=== PATIENT | male | born 1940 | race Caucasian/White ===

== ENCOUNTER 2023-07-20 11:44 | Inpatient (IN) | payer MEDICARE, OTHER ==
[2023-07-20] MEDS ORDERED: Acetaminophen 500 MG TAB PO PRN (14:01)
[2023-07-20] MEDS ORDERED: Ipratropium Bromide 0.03% Nasal Inhaler 30 ml Bottle EA NARE PRN (14:07)
[2023-07-20] MEDS ORDERED: Guaifenesin DM 100-10/5 ML UDCUP PO PRN (14:07)
[2023-07-20] MEDS: Pregabalin 75 MG CAP PO SCH ×2 (14:51→21:22)
[2023-07-20 15:17] LABS: SARS-CoV-2 NAA Rapid Test Not Detected (NotDetected)
[2023-07-20] MEDS ORDERED: Proctozone-HC 30 GM TUBE TOP PRN (16:56)
[2023-07-20] MEDS: Diclofenac 1% 100 GM Topical GEL TP SCH ×2 (17:12→21:26)
[2023-07-20] MEDS: metFORMIN 500 MG TAB PO SCH (17:13)
[2023-07-20] MEDS ORDERED: Lantiseptic Ointment 130 GM JAR TOP PRN (19:11)
[2023-07-20] MEDS: levETIRAcetam 500 MG TAB PO SCH (21:24)
[2023-07-20] MEDS: Lantiseptic Ointment 130 GM JAR TOP SCH (21:25)
[2023-07-20] MEDS: Apixaban 5 MG TAB PO SCH (21:25)
[2023-07-20] MEDS: Lisinopril 5 MG TAB PO SCH (21:26)
[2023-07-20] MEDS: HYDROcodone/Acetaminophen 7.5/325 mg Tablet PO PRN (21:27)
[2023-07-21 03:27] LABS: Bilirubin Negative (Negative); Blood, Urine Moderate (Negative); Clarity Clear (Clear); Glucose, Urine (Dipstick) Negative (Negative); Ketone, Urine Trace mg/dL (Negative); Leukocyte Negative (Negative); Nitrite Negative (Negative); Protein, Urine (Dipstick) Negative (Neg-Trace); Specific Gravity, Urine 1.015 (1.005-1.030); pH, Urine 5.5 (5.0-9.0)
[2023-07-21 03:34] LABS: Bacteria/HPF Rare-Few HPF (None Seen); CAUTI Indications for Culture Urological Procedure; RBC/HPF 21-50 HPF (0-3); Squamous Epithelial 0-3 HPF (0-3)
[2023-07-21 03:35] LABS: Urine Culture Reflex Yes Yes
[2023-07-21] MEDS: Cyanocobalamin (Vitamin B-12) 1,000 MCG TAB PO SCH (08:33)
[2023-07-21] MEDS: Aspirin 81 mg Enteric Coated Tablet PO SCH (08:33)
[2023-07-21] MEDS: Pregabalin 75 MG CAP PO SCH ×3 (08:33→21:32)
[2023-07-21] MEDS: Loratadine 10 MG TAB PO SCH (08:33)
[2023-07-21] MEDS: Diclofenac 1% 100 GM Topical GEL TP SCH ×4 (08:33→21:39)
[2023-07-21] MEDS: Apixaban 5 MG TAB PO SCH ×2 (08:33→21:32)
[2023-07-21] MEDS: Isosorbide Mononitrate 30 MG ER.TAB PO SCH (08:34)
[2023-07-21] MEDS: metFORMIN 500 MG TAB PO SCH ×2 (08:34→17:05)
[2023-07-21] MEDS: Ascorbic Acid 500 mg Chewable Tablet PO SCH (08:35)
[2023-07-21] MEDS: levETIRAcetam 500 MG TAB PO SCH ×2 (08:35→21:31)
[2023-07-21] MEDS: Atorvastatin Calcium 40 MG TAB PO SCH (08:35)
[2023-07-21] MEDS: DULoxetine 30 MG CAP PO SCH (08:36)
[2023-07-21] MEDS: Ferrous Sulfate 325 MG TAB PO SCH (08:36)
[2023-07-21] MEDS: Lantiseptic Ointment 130 GM JAR TOP SCH ×2 (08:38→21:37)
[2023-07-21] MEDS: Lisinopril 5 MG TAB PO SCH (21:32)
[2023-07-22 07:29] LABS: ALT (SGPT) 17 U/L (8-55); AST (SGOT) 18 U/L (5-34); Albumin 3.1 g/dL (3.4-4.8); Alkaline Phosphatase 60 U/L (40-110); Anion Gap 12 mmol/L (10-20); BUN (Urea Nitrogen) 14 mg/dL (8.4-25.7); Bilirubin, Total 0.6 mg/dL (0.2-1.2); Calc. Creatinine Clearance 81 mL/min (70-130); Calcium 9.1 mg/dL (7.8-10.44); Carbon Dioxide 30 mmol/L (23-31); Chloride 100 mmol/L (98-107); Estimated GFR 91; Glucose 109 mg/dL (83-110); Protein, Total 6.1 g/dL (5.8-8.1); Sodium 138 mmol/L (136-145)
[2023-07-22 07:35] LABS: Hematocrit 43.3 % (42.0-52.0); Hemoglobin 13.7 g/dL (14.0-18.0); Mean Corpuscular HGB CONC 31.7 g/dL (32.0-36.0); Mean Corpuscular Hemoglobin 29.5 pg (27.0-31.0); Mean Corpuscular Volume 92.9 fl (78.0-98.0); Mean Platelet Volume 13.1 fL (7.4-10.4); Platelet Count 147 10x3/uL (130-400); RBC Distribution Width 14.2 % (11.5-14.5); Red Blood Cell (RBC) Count 4.67 mill/uL (4.70-6.10); White Blood Cell (WBC) Count 9.5 10x3/uL (4.8-10.8)
[2023-07-22] MEDS: metFORMIN 500 MG TAB PO SCH ×2 (08:00→17:00)
[2023-07-22] MEDS: DULoxetine 30 MG CAP PO SCH (08:00)
[2023-07-22] MEDS: Loratadine 10 MG TAB PO SCH (08:00)
[2023-07-22] MEDS: Ascorbic Acid 500 mg Chewable Tablet PO SCH (08:00)
[2023-07-22] MEDS: Ferrous Sulfate 325 MG TAB PO SCH (08:00)
[2023-07-22] MEDS: Isosorbide Mononitrate 30 MG ER.TAB PO SCH (08:00)
[2023-07-22] MEDS: Atorvastatin Calcium 40 MG TAB PO SCH (08:01)
[2023-07-22] MEDS: Cyanocobalamin (Vitamin B-12) 1,000 MCG TAB PO SCH (08:01)
[2023-07-22] MEDS: Aspirin 81 mg Enteric Coated Tablet PO SCH (08:01)
[2023-07-22] MEDS: levETIRAcetam 500 MG TAB PO SCH ×2 (08:01→20:52)
[2023-07-22] MEDS: Pregabalin 75 MG CAP PO SCH ×3 (08:01→20:59)
[2023-07-22] MEDS: Lantiseptic Ointment 130 GM JAR TOP SCH ×2 (08:01→21:00)
[2023-07-22] MEDS: Apixaban 5 MG TAB PO SCH ×2 (08:01→20:56)
[2023-07-22] MEDS: Diclofenac 1% 100 GM Topical GEL TP SCH ×4 (08:03→20:52)
[2023-07-22] MEDS: Lisinopril 5 MG TAB PO SCH (20:56)
[2023-07-23] MEDS: levETIRAcetam 500 MG TAB PO SCH ×2 (08:43→21:14)
[2023-07-23] MEDS: Apixaban 5 MG TAB PO SCH ×2 (08:43→21:14)
[2023-07-23] MEDS: Diclofenac 1% 100 GM Topical GEL TP SCH ×4 (08:43→21:15)
[2023-07-23] MEDS: Aspirin 81 mg Enteric Coated Tablet PO SCH (08:43)
[2023-07-23] MEDS: Pregabalin 75 MG CAP PO SCH ×3 (08:43→21:13)
[2023-07-23] MEDS: Atorvastatin Calcium 40 MG TAB PO SCH (08:44)
[2023-07-23] MEDS: metFORMIN 500 MG TAB PO SCH ×2 (08:44→17:19)
[2023-07-23] MEDS: Loratadine 10 MG TAB PO SCH (08:45)
[2023-07-23] MEDS: Isosorbide Mononitrate 30 MG ER.TAB PO SCH (08:45)
[2023-07-23] MEDS: Cyanocobalamin (Vitamin B-12) 1,000 MCG TAB PO SCH (08:45)
[2023-07-23] MEDS: DULoxetine 30 MG CAP PO SCH (08:45)
[2023-07-23] MEDS: Ascorbic Acid 500 mg Chewable Tablet PO SCH (08:45)
[2023-07-23] MEDS: Ferrous Sulfate 325 MG TAB PO SCH (08:45)
[2023-07-23] MEDS: Lantiseptic Ointment 130 GM JAR TOP SCH ×2 (08:46→21:15)
[2023-07-23] MEDS ORDERED: Fosfomycin 3 GM/Packet PO SCH (12:00)
[2023-07-23] MEDS: Lisinopril 5 MG TAB PO SCH (21:14)
[2023-07-24] MEDS: levETIRAcetam 500 MG TAB PO SCH ×2 (08:11→20:52)
[2023-07-24] MEDS: Diclofenac 1% 100 GM Topical GEL TP SCH ×4 (08:11→21:11)
[2023-07-24] MEDS: Lantiseptic Ointment 130 GM JAR TOP SCH ×2 (08:12→23:30)
[2023-07-24] MEDS: Pregabalin 75 MG CAP PO SCH ×3 (08:12→20:54)
[2023-07-24] MEDS: Cyanocobalamin (Vitamin B-12) 1,000 MCG TAB PO SCH (08:13)
[2023-07-24] MEDS: DULoxetine 30 MG CAP PO SCH (08:13)
[2023-07-24] MEDS: Aspirin 81 mg Enteric Coated Tablet PO SCH (08:13)
[2023-07-24] MEDS: Isosorbide Mononitrate 30 MG ER.TAB PO SCH (08:13)
[2023-07-24] MEDS: metFORMIN 500 MG TAB PO SCH ×2 (08:13→16:59)
[2023-07-24] MEDS: Ferrous Sulfate 325 MG TAB PO SCH (08:13)
[2023-07-24] MEDS: Ascorbic Acid 500 mg Chewable Tablet PO SCH (08:15)
[2023-07-24] MEDS: Loratadine 10 MG TAB PO SCH (08:15)
[2023-07-24] MEDS: Apixaban 5 MG TAB PO SCH ×2 (08:16→20:53)
[2023-07-24] MEDS: Atorvastatin Calcium 40 MG TAB PO SCH (08:16)
[2023-07-24] MEDS: Lisinopril 5 MG TAB PO SCH (20:54)
[2023-07-25] MEDS: Isosorbide Mononitrate 30 MG ER.TAB PO SCH (08:52)
[2023-07-25] MEDS: levETIRAcetam 500 MG TAB PO SCH ×2 (08:52→20:20)
[2023-07-25] MEDS: DULoxetine 30 MG CAP PO SCH (08:53)
[2023-07-25] MEDS: Atorvastatin Calcium 40 MG TAB PO SCH (08:53)
[2023-07-25] MEDS: Aspirin 81 mg Enteric Coated Tablet PO SCH (08:53)
[2023-07-25] MEDS: Ferrous Sulfate 325 MG TAB PO SCH (08:53)
[2023-07-25] MEDS: Loratadine 10 MG TAB PO SCH (08:53)
[2023-07-25] MEDS: metFORMIN 500 MG TAB PO SCH ×2 (08:53→17:38)
[2023-07-25] MEDS: Ascorbic Acid 500 mg Chewable Tablet PO SCH (08:53)
[2023-07-25] MEDS: Pregabalin 75 MG CAP PO SCH ×3 (08:53→20:20)
[2023-07-25] MEDS: Apixaban 5 MG TAB PO SCH ×2 (08:54→20:21)
[2023-07-25] MEDS: Cyanocobalamin (Vitamin B-12) 1,000 MCG TAB PO SCH (08:54)
[2023-07-25] MEDS: Diclofenac 1% 100 GM Topical GEL TP SCH ×4 (08:54→20:20)
[2023-07-25] MEDS: Lantiseptic Ointment 130 GM JAR TOP SCH ×2 (08:55→20:22)
[2023-07-25] MEDS: Lisinopril 5 MG TAB PO SCH (20:20)
[2023-07-26] MEDS: Isosorbide Mononitrate 30 MG ER.TAB PO SCH (08:31)
[2023-07-26] MEDS: levETIRAcetam 500 MG TAB PO SCH ×2 (08:31→20:21)
[2023-07-26] MEDS: Aspirin 81 mg Enteric Coated Tablet PO SCH (08:32)
[2023-07-26] MEDS: Loratadine 10 MG TAB PO SCH (08:32)
[2023-07-26] MEDS: Cyanocobalamin (Vitamin B-12) 1,000 MCG TAB PO SCH (08:32)
[2023-07-26] MEDS: DULoxetine 30 MG CAP PO SCH (08:32)
[2023-07-26] MEDS: Apixaban 5 MG TAB PO SCH ×2 (08:32→20:21)
[2023-07-26] MEDS: metFORMIN 500 MG TAB PO SCH ×2 (08:32→17:46)
[2023-07-26] MEDS: Atorvastatin Calcium 40 MG TAB PO SCH (08:32)
[2023-07-26] MEDS: Ferrous Sulfate 325 MG TAB PO SCH (08:32)
[2023-07-26] MEDS: Pregabalin 75 MG CAP PO SCH ×3 (08:32→20:21)
[2023-07-26] MEDS: Diclofenac 1% 100 GM Topical GEL TP SCH ×4 (08:34→20:21)
[2023-07-26] MEDS: Ascorbic Acid 500 mg Chewable Tablet PO SCH (08:34)
[2023-07-26] MEDS: Lantiseptic Ointment 130 GM JAR TOP SCH ×2 (08:35→20:22)
[2023-07-26] MEDS: Lisinopril 5 MG TAB PO SCH (20:20)
[2023-07-27] MEDS: Apixaban 5 MG TAB PO SCH ×2 (08:33→21:41)
[2023-07-27] MEDS: Pregabalin 75 MG CAP PO SCH ×3 (08:33→21:27)
[2023-07-27] MEDS: Isosorbide Mononitrate 30 MG ER.TAB PO SCH (08:34)
[2023-07-27] MEDS: levETIRAcetam 500 MG TAB PO SCH ×2 (08:34→21:27)
[2023-07-27] MEDS: Loratadine 10 MG TAB PO SCH (08:35)
[2023-07-27] MEDS: Aspirin 81 mg Enteric Coated Tablet PO SCH (08:35)
[2023-07-27] MEDS: metFORMIN 500 MG TAB PO SCH ×2 (08:35→17:51)
[2023-07-27] MEDS: Ascorbic Acid 500 mg Chewable Tablet PO SCH (08:35)
[2023-07-27] MEDS: DULoxetine 30 MG CAP PO SCH (08:36)
[2023-07-27] MEDS: Ferrous Sulfate 325 MG TAB PO SCH (08:36)
[2023-07-27] MEDS: Cyanocobalamin (Vitamin B-12) 1,000 MCG TAB PO SCH (08:36)
[2023-07-27] MEDS: Diclofenac 1% 100 GM Topical GEL TP SCH ×4 (08:36→21:40)
[2023-07-27] MEDS: Atorvastatin Calcium 40 MG TAB PO SCH (08:36)
[2023-07-27] MEDS: Lantiseptic Ointment 130 GM JAR TOP SCH ×2 (08:37→21:33)
[2023-07-27] MEDS: Lisinopril 5 MG TAB PO SCH (21:27)
[2023-07-28] MEDS: Diclofenac 1% 100 GM Topical GEL TP SCH ×4 (08:48→20:19)
[2023-07-28] MEDS: Pregabalin 75 MG CAP PO SCH ×3 (08:48→20:20)
[2023-07-28] MEDS: Ferrous Sulfate 325 MG TAB PO SCH (08:48)
[2023-07-28] MEDS: metFORMIN 500 MG TAB PO SCH ×2 (08:48→17:23)
[2023-07-28] MEDS: Apixaban 5 MG TAB PO SCH ×2 (08:49→20:20)
[2023-07-28] MEDS: Isosorbide Mononitrate 30 MG ER.TAB PO SCH (08:49)
[2023-07-28] MEDS: levETIRAcetam 500 MG TAB PO SCH ×2 (08:49→20:20)
[2023-07-28] MEDS: Aspirin 81 mg Enteric Coated Tablet PO SCH (08:49)
[2023-07-28] MEDS: DULoxetine 30 MG CAP PO SCH (08:50)
[2023-07-28] MEDS: Atorvastatin Calcium 40 MG TAB PO SCH (08:50)
[2023-07-28] MEDS: Ascorbic Acid 500 mg Chewable Tablet PO SCH (08:50)
[2023-07-28] MEDS: Loratadine 10 MG TAB PO SCH (08:50)
[2023-07-28] MEDS: Cyanocobalamin (Vitamin B-12) 1,000 MCG TAB PO SCH (08:50)
[2023-07-28] MEDS: Lantiseptic Ointment 130 GM JAR TOP SCH ×2 (08:51→20:21)
[2023-07-28] MEDS: HYDROcodone/Acetaminophen 7.5/325 mg Tablet PO PRN (18:28)
[2023-07-28] MEDS: Lisinopril 5 MG TAB PO SCH (20:20)
[2023-07-29 05:14] LABS: Hematocrit 42.1 % (42.0-52.0); Hemoglobin 13.6 g/dL (14.0-18.0); Platelet Count 147 10x3/uL (130-400)
[2023-07-29] MEDS: Ondansetron ODT 4 MG TAB PO PRN ×2 (08:48→21:05)
[2023-07-29] MEDS: Ascorbic Acid 500 mg Chewable Tablet PO SCH (12:35)
[2023-07-29] MEDS: Aspirin 81 mg Enteric Coated Tablet PO SCH (12:35)
[2023-07-29] MEDS: Atorvastatin Calcium 40 MG TAB PO SCH ×2 (12:35→21:08)
[2023-07-29] MEDS: Ferrous Sulfate 325 MG TAB PO SCH (12:35)
[2023-07-29] MEDS: Cyanocobalamin (Vitamin B-12) 1,000 MCG TAB PO SCH (12:35)
[2023-07-29] MEDS: Apixaban 5 MG TAB PO SCH ×2 (12:35→21:06)
[2023-07-29] MEDS: metFORMIN 500 MG TAB PO SCH ×2 (12:35→18:39)
[2023-07-29] MEDS: levETIRAcetam 500 MG TAB PO SCH ×2 (12:36→21:05)
[2023-07-29] MEDS: DULoxetine 30 MG CAP PO SCH (12:36)
[2023-07-29] MEDS: Lantiseptic Ointment 130 GM JAR TOP SCH ×2 (12:36→21:10)
[2023-07-29] MEDS: Diclofenac 1% 100 GM Topical GEL TP SCH ×4 (12:36→21:08)
[2023-07-29] MEDS: Isosorbide Mononitrate 30 MG ER.TAB PO SCH (12:36)
[2023-07-29] MEDS: Pregabalin 75 MG CAP PO SCH ×3 (12:36→21:07)
[2023-07-29] MEDS: Loratadine 10 MG TAB PO SCH (12:36)
[2023-07-29] MEDS ORDERED: Acetaminophen 500 MG TAB PO PRN (13:51)
[2023-07-29] MEDS ORDERED: HYDROcodone/Acetaminophen 7.5/325 mg Tablet PO PRN (13:56)
[2023-07-29] MEDS: Lisinopril 5 MG TAB PO SCH (21:07)
[2023-07-30] MEDS: Pregabalin 75 MG CAP PO SCH ×3 (09:11→21:11)
[2023-07-30] MEDS: metFORMIN 500 MG TAB PO SCH ×2 (09:11→17:02)
[2023-07-30] MEDS: Ascorbic Acid 500 mg Chewable Tablet PO SCH (09:12)
[2023-07-30] MEDS: levETIRAcetam 500 MG TAB PO SCH ×2 (09:12→21:10)
[2023-07-30] MEDS: Aspirin 81 mg Enteric Coated Tablet PO SCH (09:12)
[2023-07-30] MEDS: Isosorbide Mononitrate 30 MG ER.TAB PO SCH (09:12)
[2023-07-30] MEDS: Apixaban 5 MG TAB PO SCH ×2 (09:12→21:10)
[2023-07-30] MEDS: Ferrous Sulfate 325 MG TAB PO SCH (09:12)
[2023-07-30] MEDS: Cyanocobalamin (Vitamin B-12) 1,000 MCG TAB PO SCH (09:12)
[2023-07-30] MEDS: Loratadine 10 MG TAB PO SCH (09:12)
[2023-07-30] MEDS: DULoxetine 30 MG CAP PO SCH (09:13)
[2023-07-30] MEDS: Diclofenac 1% 100 GM Topical GEL TP SCH ×4 (09:13→21:12)
[2023-07-30] MEDS: Lantiseptic Ointment 130 GM JAR TOP SCH ×2 (09:14→21:13)
[2023-07-30] MEDS: HYDROcodone/Acetaminophen 5/325 mg Tablet PO PRN (13:22)
[2023-07-30] MEDS: Atorvastatin Calcium 40 MG TAB PO SCH (21:10)
[2023-07-30] MEDS: Lisinopril 5 MG TAB PO SCH (21:11)
[2023-07-31] MEDS: Ferrous Sulfate 325 MG TAB PO SCH (09:01)
[2023-07-31] MEDS: Aspirin 81 mg Enteric Coated Tablet PO SCH (09:02)
[2023-07-31] MEDS: DULoxetine 30 MG CAP PO SCH (09:02)
[2023-07-31] MEDS: Ascorbic Acid 500 mg Chewable Tablet PO SCH (09:02)
[2023-07-31] MEDS: Loratadine 10 MG TAB PO SCH (09:02)
[2023-07-31] MEDS: Pregabalin 75 MG CAP PO SCH ×3 (09:02→20:25)
[2023-07-31] MEDS: levETIRAcetam 500 MG TAB PO SCH ×2 (09:02→20:32)
[2023-07-31] MEDS: Cyanocobalamin (Vitamin B-12) 1,000 MCG TAB PO SCH (09:02)
[2023-07-31] MEDS: metFORMIN 500 MG TAB PO SCH ×2 (09:02→16:58)
[2023-07-31] MEDS: Isosorbide Mononitrate 30 MG ER.TAB PO SCH (09:02)
[2023-07-31] MEDS: Apixaban 5 MG TAB PO SCH ×2 (09:02→20:25)
[2023-07-31] MEDS: Lantiseptic Ointment 130 GM JAR TOP SCH ×2 (09:03→20:33)
[2023-07-31] MEDS: Diclofenac 1% 100 GM Topical GEL TP SCH ×4 (09:03→20:32)
[2023-07-31 11:49] LABS: Bilirubin Negative (Negative); Blood, Urine Moderate (Negative); Clarity Clear (Clear); Glucose, Urine (Dipstick) Negative (Negative); Ketone, Urine Negative (Negative); Leukocyte Negative (Negative); Nitrite Negative (Negative); Protein, Urine (Dipstick) Trace mg/dL (Neg-Trace); Urobilinogen 0.2 mg/dL (Less than 2)
[2023-07-31 11:59] LABS: Bacteria/HPF Rare-Few HPF (None Seen); CAUTI Indications for Culture Acute Hematuria; WBC/HPF 0-3 HPF (0-3)
[2023-07-31 12:00] LABS: Urine Culture Reflex No No
[2023-07-31] MEDS: Lisinopril 5 MG TAB PO SCH (20:25)
[2023-07-31] MEDS: Atorvastatin Calcium 40 MG TAB PO SCH (20:25)
[2023-08-01] MEDS: levETIRAcetam 500 MG TAB PO SCH ×2 (09:31→21:12)
[2023-08-01] MEDS: DULoxetine 30 MG CAP PO SCH (09:31)
[2023-08-01] MEDS: Isosorbide Mononitrate 30 MG ER.TAB PO SCH (09:32)
[2023-08-01] MEDS: Loratadine 10 MG TAB PO SCH (09:32)
[2023-08-01] MEDS: Ferrous Sulfate 325 MG TAB PO SCH (09:32)
[2023-08-01] MEDS: Cyanocobalamin (Vitamin B-12) 1,000 MCG TAB PO SCH (09:32)
[2023-08-01] MEDS: Aspirin 81 mg Enteric Coated Tablet PO SCH (09:32)
[2023-08-01] MEDS: Ascorbic Acid 500 mg Chewable Tablet PO SCH (09:32)
[2023-08-01] MEDS: Apixaban 5 MG TAB PO SCH ×2 (09:32→21:13)
[2023-08-01] MEDS: metFORMIN 500 MG TAB PO SCH ×2 (09:32→17:21)
[2023-08-01] MEDS: Lantiseptic Ointment 130 GM JAR TOP SCH ×2 (09:32→21:14)
[2023-08-01] MEDS: Diclofenac 1% 100 GM Topical GEL TP SCH ×4 (09:34→21:14)
[2023-08-01] MEDS: Pregabalin 75 MG CAP PO SCH ×3 (09:37→21:12)
[2023-08-01] MEDS: Atorvastatin Calcium 40 MG TAB PO SCH (21:12)
[2023-08-01] MEDS: Lisinopril 5 MG TAB PO SCH (21:13)
[2023-08-02] MEDS: DULoxetine 30 MG CAP PO SCH (08:40)
[2023-08-02] MEDS: Loratadine 10 MG TAB PO SCH (08:40)
[2023-08-02] MEDS: Isosorbide Mononitrate 30 MG ER.TAB PO SCH (08:40)
[2023-08-02] MEDS: levETIRAcetam 500 MG TAB PO SCH ×2 (08:40→20:08)
[2023-08-02] MEDS: Ferrous Sulfate 325 MG TAB PO SCH (08:40)
[2023-08-02] MEDS: Apixaban 5 MG TAB PO SCH ×2 (08:41→20:08)
[2023-08-02] MEDS: Diclofenac 1% 100 GM Topical GEL TP SCH ×4 (08:41→20:08)
[2023-08-02] MEDS: Aspirin 81 mg Enteric Coated Tablet PO SCH (08:41)
[2023-08-02] MEDS: metFORMIN 500 MG TAB PO SCH ×2 (08:41→16:05)
[2023-08-02] MEDS: Ascorbic Acid 500 mg Chewable Tablet PO SCH (08:41)
[2023-08-02] MEDS: Cyanocobalamin (Vitamin B-12) 1,000 MCG TAB PO SCH (08:41)
[2023-08-02] MEDS: Lantiseptic Ointment 130 GM JAR TOP SCH ×2 (08:41→20:13)
[2023-08-02] MEDS: Pregabalin 75 MG CAP PO SCH ×3 (08:44→20:09)
[2023-08-02] MEDS: Lisinopril 5 MG TAB PO SCH (20:08)
[2023-08-02] MEDS: Atorvastatin Calcium 40 MG TAB PO SCH (20:08)
[2023-08-03] MEDS: Loratadine 10 MG TAB PO SCH ×2 (08:40→13:41)
[2023-08-03] MEDS: Isosorbide Mononitrate 30 MG ER.TAB PO SCH ×2 (08:40→13:42)
[2023-08-03] MEDS: levETIRAcetam 500 MG TAB PO SCH ×3 (08:41→20:32)
[2023-08-03] MEDS: Pregabalin 75 MG CAP PO SCH ×4 (08:41→20:32)
[2023-08-03] MEDS: Ascorbic Acid 500 mg Chewable Tablet PO SCH ×2 (08:41→13:42)
[2023-08-03] MEDS: Cyanocobalamin (Vitamin B-12) 1,000 MCG TAB PO SCH ×2 (08:42→13:42)
[2023-08-03] MEDS: metFORMIN 500 MG TAB PO SCH ×3 (08:42→16:48)
[2023-08-03] MEDS: Diclofenac 1% 100 GM Topical GEL TP SCH ×4 (08:42→20:32)
[2023-08-03] MEDS: Ferrous Sulfate 325 MG TAB PO SCH ×2 (08:42→13:42)
[2023-08-03] MEDS: Apixaban 5 MG TAB PO SCH ×3 (08:42→20:32)
[2023-08-03] MEDS: Aspirin 81 mg Enteric Coated Tablet PO SCH ×2 (08:42→13:42)
[2023-08-03] MEDS: DULoxetine 30 MG CAP PO SCH ×2 (08:43→13:42)
[2023-08-03] MEDS: Lantiseptic Ointment 130 GM JAR TOP SCH ×2 (08:43→20:33)
[2023-08-03] MEDS: Ondansetron ODT 4 MG TAB PO PRN (09:21)
[2023-08-03] MEDS ORDERED: Ipratropium/Albuterol 3 ML NEB NEB PRN (15:13)
[2023-08-03] MEDS: HYDROcodone/Acetaminophen 5/325 mg Tablet PO PRN ×2 (15:39→23:39)
[2023-08-03] MEDS: Atorvastatin Calcium 40 MG TAB PO SCH (20:32)
[2023-08-03] MEDS: guaiFENesin ER 600 MG TAB PO SCH (20:32)
[2023-08-03] MEDS: Lisinopril 5 MG TAB PO SCH (20:32)
[2023-08-04] MEDS: HYDROcodone/Acetaminophen 5/325 mg Tablet PO PRN (08:58)
[2023-08-04] MEDS: Pregabalin 75 MG CAP PO SCH ×3 (08:58→20:00)
[2023-08-04] MEDS: Aspirin 81 mg Enteric Coated Tablet PO SCH (09:00)
[2023-08-04] MEDS: Isosorbide Mononitrate 30 MG ER.TAB PO SCH (09:00)
[2023-08-04] MEDS: levETIRAcetam 500 MG TAB PO SCH ×2 (09:00→20:00)
[2023-08-04] MEDS: metFORMIN 500 MG TAB PO SCH ×2 (09:00→17:05)
[2023-08-04] MEDS: Apixaban 5 MG TAB PO SCH ×2 (09:00→20:01)
[2023-08-04] MEDS: guaiFENesin ER 600 MG TAB PO SCH ×2 (09:00→20:02)
[2023-08-04] MEDS: DULoxetine 30 MG CAP PO SCH (09:00)
[2023-08-04] MEDS: Lantiseptic Ointment 130 GM JAR TOP SCH ×2 (09:01→20:06)
[2023-08-04] MEDS: Ascorbic Acid 500 mg Chewable Tablet PO SCH (09:02)
[2023-08-04] MEDS: Ferrous Sulfate 325 MG TAB PO SCH (09:02)
[2023-08-04] MEDS: Cyanocobalamin (Vitamin B-12) 1,000 MCG TAB PO SCH (09:02)
[2023-08-04] MEDS: Diclofenac 1% 100 GM Topical GEL TP SCH ×4 (09:23→20:02)
[2023-08-04] MEDS ORDERED: HYDROcodone/Acetaminophen 10/325 mg Tablet PO PRN (10:11)
[2023-08-04] MEDS ORDERED: HYDROcodone/Acetaminophen 5/325 mg Tablet PO PRN (10:15)
[2023-08-04] MEDS ORDERED: HYDROcodone/Acetaminophen 10/325 mg Tablet PO SCH (10:15)
[2023-08-04] MEDS ORDERED: Mag-Al Plus 1200 MG/1200 MG/120 MG/30 ML UDCUP PO PRN (12:39)
[2023-08-04] MEDS: Cyclobenzaprine 10 MG TAB PO PRN (19:51)
[2023-08-04] MEDS: Atorvastatin Calcium 40 MG TAB PO SCH (20:02)
[2023-08-04] MEDS: Lisinopril 5 MG TAB PO SCH (20:09)
[2023-08-05] MEDS: Ferrous Sulfate 325 MG TAB PO SCH (08:57)
[2023-08-05] MEDS: metFORMIN 500 MG TAB PO SCH ×2 (08:57→18:02)
[2023-08-05] MEDS: Pregabalin 75 MG CAP PO SCH ×3 (08:57→20:05)
[2023-08-05] MEDS: Loratadine 10 MG TAB PO SCH (08:58)
[2023-08-05] MEDS: DULoxetine 30 MG CAP PO SCH (08:58)
[2023-08-05] MEDS: Apixaban 5 MG TAB PO SCH ×2 (08:58→20:08)
[2023-08-05] MEDS: Cyanocobalamin (Vitamin B-12) 1,000 MCG TAB PO SCH (08:58)
[2023-08-05] MEDS: Isosorbide Mononitrate 30 MG ER.TAB PO SCH (08:58)
[2023-08-05] MEDS: guaiFENesin ER 600 MG TAB PO SCH ×2 (08:58→20:06)
[2023-08-05] MEDS: levETIRAcetam 500 MG TAB PO SCH ×2 (08:58→20:06)
[2023-08-05] MEDS: Aspirin 81 mg Enteric Coated Tablet PO SCH (08:58)
[2023-08-05] MEDS: Ascorbic Acid 500 mg Chewable Tablet PO SCH (08:58)
[2023-08-05] MEDS: Diclofenac 1% 100 GM Topical GEL TP SCH ×4 (08:59→20:08)
[2023-08-05] MEDS: Lantiseptic Ointment 130 GM JAR TOP SCH ×2 (09:00→20:08)
[2023-08-05] MEDS ORDERED: HYDROcodone/Acetaminophen 5/325 mg Tablet PO PRN (13:18)
[2023-08-05] MEDS ORDERED: Acetaminophen 500 MG TAB PO PRN (13:19)
[2023-08-05] MEDS: Atorvastatin Calcium 40 MG TAB PO SCH (20:05)
[2023-08-05] MEDS: Lisinopril 5 MG TAB PO SCH (20:06)
[2023-08-06 05:14] LABS: Hematocrit 42.8 % (42.0-52.0); Hemoglobin 14.2 g/dL (14.0-18.0); Platelet Count 138 10x3/uL (130-400)
[2023-08-06] MEDS: Ferrous Sulfate 325 MG TAB PO SCH (08:40)
[2023-08-06] MEDS: guaiFENesin ER 600 MG TAB PO SCH ×2 (08:40→19:54)
[2023-08-06] MEDS: Cyanocobalamin (Vitamin B-12) 1,000 MCG TAB PO SCH (08:40)
[2023-08-06] MEDS: Pregabalin 75 MG CAP PO SCH ×3 (08:40→19:53)
[2023-08-06] MEDS: metFORMIN 500 MG TAB PO SCH ×2 (08:40→17:06)
[2023-08-06] MEDS: Aspirin 81 mg Enteric Coated Tablet PO SCH (08:40)
[2023-08-06] MEDS: levETIRAcetam 500 MG TAB PO SCH ×2 (08:41→19:52)
[2023-08-06] MEDS: Apixaban 5 MG TAB PO SCH ×2 (08:41→19:52)
[2023-08-06] MEDS: Lantiseptic Ointment 130 GM JAR TOP SCH ×2 (08:41→19:55)
[2023-08-06] MEDS: Isosorbide Mononitrate 30 MG ER.TAB PO SCH (08:41)
[2023-08-06] MEDS: Ascorbic Acid 500 mg Chewable Tablet PO SCH (08:41)
[2023-08-06] MEDS: DULoxetine 30 MG CAP PO SCH (08:41)
[2023-08-06] MEDS: Loratadine 10 MG TAB PO SCH (08:41)
[2023-08-06] MEDS: Diclofenac 1% 100 GM Topical GEL TP SCH ×4 (08:42→19:54)
[2023-08-06] MEDS: Atorvastatin Calcium 40 MG TAB PO SCH (19:52)
[2023-08-06] MEDS: Lisinopril 5 MG TAB PO SCH (19:53)
[2023-08-07] MEDS: levETIRAcetam 500 MG TAB PO SCH ×2 (08:06→20:24)
[2023-08-07] MEDS: metFORMIN 500 MG TAB PO SCH ×2 (08:06→17:19)
[2023-08-07] MEDS: Ascorbic Acid 500 mg Chewable Tablet PO SCH (08:07)
[2023-08-07] MEDS: guaiFENesin ER 600 MG TAB PO SCH ×2 (08:07→20:24)
[2023-08-07] MEDS: Ferrous Sulfate 325 MG TAB PO SCH (08:07)
[2023-08-07] MEDS: DULoxetine 30 MG CAP PO SCH (08:07)
[2023-08-07] MEDS: Aspirin 81 mg Enteric Coated Tablet PO SCH (08:07)
[2023-08-07] MEDS: Isosorbide Mononitrate 30 MG ER.TAB PO SCH (08:07)
[2023-08-07] MEDS: Apixaban 5 MG TAB PO SCH ×2 (08:07→20:24)
[2023-08-07] MEDS: Loratadine 10 MG TAB PO SCH (08:08)
[2023-08-07] MEDS: Pregabalin 75 MG CAP PO SCH ×3 (08:08→20:24)
[2023-08-07] MEDS: Lantiseptic Ointment 130 GM JAR TOP SCH ×2 (08:08→20:22)
[2023-08-07] MEDS: Diclofenac 1% 100 GM Topical GEL TP SCH ×4 (08:08→20:23)
[2023-08-07] MEDS: Cyanocobalamin (Vitamin B-12) 1,000 MCG TAB PO SCH (08:08)
[2023-08-07] MEDS: Atorvastatin Calcium 40 MG TAB PO SCH (20:23)
[2023-08-07] MEDS: Lisinopril 5 MG TAB PO SCH (20:23)
[2023-08-07] MEDS: Cyclobenzaprine 10 MG TAB PO PRN (20:24)
[2023-08-08] MEDS: Pregabalin 75 MG CAP PO SCH ×3 (08:03→20:27)
[2023-08-08] MEDS: levETIRAcetam 500 MG TAB PO SCH ×2 (08:13→20:28)
[2023-08-08] MEDS: DULoxetine 30 MG CAP PO SCH (08:14)
[2023-08-08] MEDS: guaiFENesin ER 600 MG TAB PO SCH ×2 (08:14→20:29)
[2023-08-08] MEDS: Isosorbide Mononitrate 30 MG ER.TAB PO SCH (08:14)
[2023-08-08] MEDS: Apixaban 5 MG TAB PO SCH ×2 (08:14→20:28)
[2023-08-08] MEDS: Cyanocobalamin (Vitamin B-12) 1,000 MCG TAB PO SCH (08:14)
[2023-08-08] MEDS: Diclofenac 1% 100 GM Topical GEL TP SCH ×4 (08:15→20:26)
[2023-08-08] MEDS: Ferrous Sulfate 325 MG TAB PO SCH (08:15)
[2023-08-08] MEDS: metFORMIN 500 MG TAB PO SCH ×2 (08:15→17:10)
[2023-08-08] MEDS: Lantiseptic Ointment 130 GM JAR TOP SCH ×2 (08:15→20:29)
[2023-08-08] MEDS: Ascorbic Acid 500 mg Chewable Tablet PO SCH (08:15)
[2023-08-08] MEDS: Aspirin 81 mg Enteric Coated Tablet PO SCH (08:15)
[2023-08-08] MEDS: Loratadine 10 MG TAB PO SCH (08:15)
[2023-08-08 11:03] VITALS: BMI 25.4
[2023-08-08] MEDS: Lisinopril 5 MG TAB PO SCH (20:28)
[2023-08-08] MEDS: Atorvastatin Calcium 40 MG TAB PO SCH (20:28)
[2023-08-09] MEDS: Pregabalin 75 MG CAP PO SCH ×4 (08:10→21:10)
[2023-08-09] MEDS: Ferrous Sulfate 325 MG TAB PO SCH ×2 (08:11→10:36)
[2023-08-09] MEDS: Cyanocobalamin (Vitamin B-12) 1,000 MCG TAB PO SCH ×2 (08:11→10:36)
[2023-08-09] MEDS: Ascorbic Acid 500 mg Chewable Tablet PO SCH ×2 (08:12→10:36)
[2023-08-09] MEDS: Lantiseptic Ointment 130 GM JAR TOP SCH ×2 (08:12→23:00)
[2023-08-09] MEDS: Diclofenac 1% 100 GM Topical GEL TP SCH ×4 (08:12→21:13)
[2023-08-09] MEDS: metFORMIN 500 MG TAB PO SCH ×3 (08:12→16:57)
[2023-08-09] MEDS: guaiFENesin ER 600 MG TAB PO SCH ×3 (08:14→21:11)
[2023-08-09] MEDS: Ondansetron ODT 4 MG TAB PO PRN (09:09)
[2023-08-09] MEDS: Loratadine 10 MG TAB PO SCH (12:01)
[2023-08-09] MEDS: Apixaban 5 MG TAB PO SCH ×2 (12:01→21:12)
[2023-08-09] MEDS: levETIRAcetam 500 MG TAB PO SCH ×2 (12:01→21:11)
[2023-08-09] MEDS: DULoxetine 30 MG CAP PO SCH (12:02)
[2023-08-09] MEDS: Isosorbide Mononitrate 30 MG ER.TAB PO SCH (12:02)
[2023-08-09] MEDS: Aspirin 81 mg Enteric Coated Tablet PO SCH (12:02)
[2023-08-09 19:39] VITALS: BP 149/80
[2023-08-09 20:08] VITALS: TEMP 98
[2023-08-09] MEDS: Atorvastatin Calcium 40 MG TAB PO SCH (21:12)
[2023-08-09] MEDS: Lisinopril 5 MG TAB PO SCH (23:00)
== END 2023-08-09 21:30 | disposition hospice, home (50) | DRG 56 ==
LOC: UNDOADMIN 12:10 → MADMS 12:10
PROVIDERS: ADMIT Family Medicine; ATTEND Family Medicine
DX: I69.354 Hemiplegia and hemiparesis following cerebral infarction affecting left non-dominant side (principal); J96.01 Acute respiratory failure with hypoxia; I25.810 Atherosclerosis of coronary artery bypass graft(s) without angina pectoris; N39.0 Urinary tract infection, site not specified; R53.81 Other malaise; D64.9 Anemia, unspecified; Z51.5 Encounter for palliative care; I69.391 Dysphagia following cerebral infarction; R13.10 Dysphagia, unspecified; E11.9 Type 2 diabetes mellitus without complications; R33.9 Retention of urine, unspecified; Z86.711 Personal history of pulmonary embolism; I10 Essential (primary) hypertension; Z85.118 Personal history of other malignant neoplasm of bronchus and lung; Z85.89 Personal history of malignant neoplasm of other organs and systems; Z95.1 Presence of aortocoronary bypass graft; Z79.01 Long term (current) use of anticoagulants; Z92.21 Personal history of antineoplastic chemotherapy; Z92.3 Personal history of irradiation; Z88.2 Allergy status to sulfonamides; Z79.899 Other long term (current) drug therapy; Z79.82 Long term (current) use of aspirin; Z79.84 Long term (current) use of oral hypoglycemic drugs; Z11.52 Encounter for screening for COVID-19; Z74.01 Bed confinement status
CPT/HCPCS: 36415; 36416; 80053; 81001; 82565; 85014; 85018; 85027; 85049; 87077; 87086; 87186; 94640; J7620; Q0162; U0002